=== PATIENT | female | born 2000 | race Caucasian/White ===

== ENCOUNTER 2023-01-04 21:09 | Emergency (ER) | payer OTHER ==
[~2023-01-04] VITALS: Ht 160 cm; Wt 63.8 kg
[~2023-01-04 21:09] MED LIST: IBUP-1022 PO; METH-1164 PO
[2023-01-05] MEDS ORDERED: IBUPROFEN 600MG TAB PO ONE (01:55)
[2023-01-05 02:10] VITALS: BP 114/74; TEMP 98; O2SAT 99
== END 2023-01-05 02:11 | disposition home or self-care (01) ==
LOC: M ED 21:09
DX: S00.83XA Contusion of other part of head, initial encounter (principal); S60.221A Contusion of right hand, initial encounter; S60.222A Contusion of left hand, initial encounter; V49.40XA Driver injured in collision with unspecified motor vehicles in traffic accident, initial encounter; Y92.9 Unspecified place or not applicable; Y93.89 Activity, other specified

== ENCOUNTER 2023-02-26 21:24 | Emergency (ER) | payer OTHER ==
[~2023-02-26] VITALS: Ht 152.4 cm; Wt 61.8 kg
[2023-02-26 22:15] LABS: BASO % 0.4 % (0.0-1.0); EOS % 0.2 % (0.0-3.0); HEMATOCRIT 39.6 % (36.0-47.0); HEMOGLOBIN 14.2 g/dl (12.0-15.5); LYMPH # 1.5 10^3/uL (1.5-5.0); LYMPH % 17.9 % (24.0-44.0); MEAN CORPUSCULAR HEMOGLOBIN 31.8 pg (27.0-33.0); MEAN CORPUSCULAR HGB CONC 35.9 g/dl (32.0-36.5); MEAN CORPUSCULAR VOLUME 88.8 fl (80.0-96.0); MONO # 0.5 10^3/uL (0.0-0.8); MONO % 5.8 % (2.0-8.0); NEUTROPHILS # 6.3 10^3/uL (1.5-8.5); NEUTROPHILS % 75.5 % (36.0-66.0); PLATELET COUNT, AUTOMATED 255 10^3/uL (150-450); RED BLOOD COUNT 4.46 10^6/uL (4.00-5.40); WHITE BLOOD COUNT 8.3 10^3/uL (4.0-10.0)
[2023-02-26 22:35] LABS: LIPASE 31 U/L (12-53)
[2023-02-26 22:37] LABS: ALBUMIN 4.5 G/DL (3.2-5.2); ALKALINE PHOSPHATASE 47 U/L (46-116); ALT/SGPT 26 U/L (7.0-40); AST/SGOT 15 U/L (<34); BILIRUBIN,DIRECT 0.2 MG/DL (<0.4); BILIRUBIN,TOTAL 0.5 MG/DL (0.3-1.2); BLOOD UREA NITROGEN 17 MG/DL (9-23); CALCIUM LEVEL 8.7 MG/DL (8.5-10.1); CARBON DIOXIDE LEVEL 23 MMOL/L (20-31); CHLORIDE LEVEL 106 MMOL/L (98-107); CREATININE FOR GFR 0.88 MG/DL (0.55-1.30); GLOMERULAR FILTRATION RATE > 60.0 (>60); GLUCOSE, FASTING 119 MG/DL (60-100); HCG, SERUM QUALITATIVE NEGATIVE (NEGATIVE); POTASSIUM SERUM 3.4 MMOL/L (3.5-5.1); SODIUM LEVEL 139 MMOL/L (136-145); TOTAL PROTEIN 7.5 G/DL (5.7-8.2)
[2023-02-26] MEDS ORDERED: KETOROLAC 30 MG/ML 1ML VIAL IV ONE (22:45)
[2023-02-26] MEDS ORDERED: ONDANSETRON 4MG 2ML VIAL IV ONE (22:45)
[2023-02-26] MEDS ORDERED: ISOVUE-370 76% 100ML VIAL As Ordered ONE (22:47)
[2023-02-26] MEDS ORDERED: FAMOTIDINE 20MG/2ML VIAL IVP ONE (22:50)
[2023-02-26] MEDS ORDERED: MORPHINE 4 MG/ML 1ML VIAL IV ONE (23:35)
[2023-02-27 00:11] VITALS: BP 173/90; TEMP 98.2
[2023-02-27 00:30] VITALS: O2SAT 99
[2023-02-27 01:39] LABS: CHLAMYDIA DNA AMPLIFICATION NEGATIVE (NEGATIVE); GC DNA AMPLIFICATION NEGATIVE (NEGATIVE)
[2023-02-27] MEDS ORDERED: ONDA4TAB6 PO (01:51)
== END 2023-02-27 02:00 | disposition home or self-care (01) ==
LOC: M ED 21:24 → EDBD 21:24 → M ED 02-27 02:00
DX: R11.2 Nausea with vomiting, unspecified (principal); F17.290 Nicotine dependence, other tobacco product, uncomplicated
CPT/HCPCS: 36415; 74177; 80048; 80076; 81001; 83690; 84703; 85025; 87486; 87581; 87633; 87661; 87798; 87810; 87850; 93005; 96374; 96375; 99284; J1885; J2405; Q9967; S0028

== ENCOUNTER 2023-02-27 07:00 | Emergency (ER) | payer OTHER ==
[~2023-02-27] VITALS: Ht 152.4 cm; Wt 62.4 kg
[2023-02-27 07:00] VITALS: BP 137/74; TEMP 97.2; O2SAT 100
[~2023-02-27 07:00] MED LIST changes: +ONDA4TAB6 PO
[2023-02-27] MEDS ORDERED: NS 1,000 ML IV ONE (09:30)
[2023-02-27] MEDS ORDERED: KETOROLAC 30 MG/ML 1ML VIAL IV ONE (09:30)
[2023-02-27] MEDS ORDERED: ONDANSETRON 4MG 2ML VIAL IV ONE (09:30)
[2023-02-27] MEDS ORDERED: HALOPERIDOL 5MG/ML 1ML VIAL IV ONE (10:35)
== END 2023-02-27 12:04 | disposition home or self-care (01) ==
LOC: M ED 07:00
DX: R11.2 Nausea with vomiting, unspecified (principal); N83.209 Unspecified ovarian cyst, unspecified side; Z91.018 Allergy to other foods; Z79.83 Long term (current) use of bisphosphonates; F17.210 Nicotine dependence, cigarettes, uncomplicated; F10.10 Alcohol abuse, uncomplicated; F19.10 Other psychoactive substance abuse, uncomplicated
CPT/HCPCS: 80047; 96361; 96374; 96375; 99283; J1630; J1885; J2405

== ENCOUNTER 2023-03-01 08:47 | Emergency (ER) | payer OTHER ==
[~2023-03-01] VITALS: Ht 152.4 cm; Wt 69.8 kg
[2023-03-01] MEDS ORDERED: ONDANSETRON 4MG 2ML VIAL IV ONE (11:10)
[2023-03-01] MEDS ORDERED: NS 1,000 ML IV ONE (11:10)
[2023-03-01 11:47] LABS: HEMATOCRIT 38.7 % (36.0-47.0); HEMOGLOBIN 14.2 g/dl (12.0-15.5); MEAN CORPUSCULAR HEMOGLOBIN 32.6 pg (27.0-33.0); PLATELET COUNT, AUTOMATED 245 10^3/uL (150-450); RED BLOOD COUNT 4.35 10^6/uL (4.00-5.40); WHITE BLOOD COUNT 5.2 10^3/uL (4.0-10.0)
[2023-03-01 11:51] LABS: MEAN CORPUSCULAR HGB CONC 36.7 g/dl (32.0-36.5)
[2023-03-01 12:29] LABS: ALBUMIN 4.5 G/DL (3.2-5.2); ALKALINE PHOSPHATASE 42 U/L (46-116); ALT/SGPT 29 U/L (7.0-40); AST/SGOT 38 U/L (<34); BILIRUBIN,DIRECT 0.1 MG/DL (<0.4); BILIRUBIN,TOTAL 0.5 MG/DL (0.3-1.2); HCG, SERUM QUANTITATIVE < 2.6 MIU/ML (<4.2); LIPASE 41 U/L (12-53); TOTAL PROTEIN 7.7 G/DL (5.7-8.2)
[2023-03-01] MEDS ORDERED: ONDA4TAB6 PO (14:35)
[2023-03-01 14:49] VITALS: BP 134/88; TEMP 99; O2SAT 97
== END 2023-03-01 15:06 | disposition home or self-care (01) ==
LOC: M ED 08:47
DX: R11.2 Nausea with vomiting, unspecified (principal); F17.290 Nicotine dependence, other tobacco product, uncomplicated; Z79.899 Other long term (current) drug therapy; Z88.8 Allergy status to other drugs, medicaments and biological substances
CPT/HCPCS: 71046; 80047; 80076; 81001; 83690; 84702; 85027; 87486; 87581; 87633; 87798; 96361; 96374; 99284; J2405

== ENCOUNTER 2023-03-04 18:21 | Emergency (ER) | payer OTHER ==
[~2023-03-04] VITALS: Ht 152.4 cm; Wt 61.3 kg
[2023-03-04 19:47] LABS: BASO % 0.2 % (0.0-1.0); EOS % 0.2 % (0.0-3.0); HEMATOCRIT 40.4 % (36.0-47.0); HEMOGLOBIN 14.3 g/dl (12.0-15.5); LYMPH # 1.2 10^3/uL (1.5-5.0); LYMPH % 15.3 % (24.0-44.0); MEAN CORPUSCULAR HEMOGLOBIN 32.1 pg (27.0-33.0); MEAN CORPUSCULAR HGB CONC 35.4 g/dl (32.0-36.5); MEAN CORPUSCULAR VOLUME 90.6 fl (80.0-96.0); MONO # 0.4 10^3/uL (0.0-0.8); MONO % 4.7 % (2.0-8.0); NEUTROPHILS # 6.4 10^3/uL (1.5-8.5); NEUTROPHILS % 79.4 % (36.0-66.0); PLATELET COUNT, AUTOMATED 224 10^3/uL (150-450); RED BLOOD COUNT 4.46 10^6/uL (4.00-5.40)
[2023-03-04 20:06] LABS: CK-MB VALUE MASS < 1.0 NG/ML (<3.6)
[2023-03-04] MEDS ORDERED: KETOROLAC 30 MG/ML 1ML VIAL IV ONE (20:10)
[2023-03-04] MEDS ORDERED: NS 1,000 ML IV ONE (20:10)
[2023-03-04 20:11] LABS: CPK CREATINE PHOSPHOKINASE 83 U/L (34-145)
[2023-03-04 20:42] LABS: INR 1.03; PROTHROMBIN TIME 13.2 SECONDS (12.5-14.5)
[2023-03-04 20:44] LABS: D-DIMER QUANT < 0.27 ug/mL (<0.5)
[2023-03-04] MEDS ORDERED: ALBUTEROL SULFATE 2.5MG/0.5ML INH NEB SOLN NEB ONE (21:15)
[2023-03-04 22:10] LABS: RSV AMPLIFICATION NEGATIVE (NEGATIVE)
[2023-03-04 22:23] VITALS: TEMP 97.9
[2023-03-04 22:30] VITALS: BP 132/72
[2023-03-04 22:36] VITALS: O2SAT 96
[2023-03-04] MEDS ORDERED: ALBU8.5H INH (22:42)
[2023-03-04] MEDS ORDERED: HYDR-3363 PO (22:42)
== END 2023-03-04 22:59 | disposition home or self-care (01) ==
LOC: M ED 18:21
DX: F41.9 Anxiety disorder, unspecified (principal); R07.9 Chest pain, unspecified; R94.31 Abnormal electrocardiogram [ECG] [EKG]; F12.90 Cannabis use, unspecified, uncomplicated; F17.290 Nicotine dependence, other tobacco product, uncomplicated; Z91.018 Allergy to other foods; Z88.8 Allergy status to other drugs, medicaments and biological substances; Z79.899 Other long term (current) drug therapy; Z79.51 Long term (current) use of inhaled steroids
CPT/HCPCS: 71046; 80047; 81001; 82550; 82553; 83735; 84443; 84702; 85025; 85379; 85610; 87631; 93005; 94640; 96374; 99285; J1885

== ENCOUNTER 2023-09-29 21:58 | Emergency (ER) | payer OTHER ==
[~2023-09-29] VITALS: Ht 152.4 cm; Wt 60.8 kg
[~2023-09-29 21:58] MED LIST changes: +ALBU8.5H INH; +HYDR-3363 PO; +ONDA-282 PO; -ONDA4TAB6 PO
[2023-09-29 21:59] VITALS: BP 128/84; TEMP 97.9; O2SAT 99
[2023-09-29 22:46] LABS: BASO % 0.4 % (0.0-1.0); EOS # 0.1 10^3/uL (0.0-0.5); EOS % 1.2 % (0.0-3.0); HEMATOCRIT 42.3 % (36.0-47.0); LYMPH # 1.8 10^3/uL (1.5-5.0); LYMPH % 26.6 % (24.0-44.0); MEAN CORPUSCULAR HEMOGLOBIN 32.1 pg (27.0-33.0); MEAN CORPUSCULAR HGB CONC 35.5 g/dl (32.0-36.5); MEAN CORPUSCULAR VOLUME 90.4 fl (80.0-96.0); MONO # 0.5 10^3/uL (0.0-0.8); MONO % 6.6 % (2.0-8.0); NEUTROPHILS # 4.5 10^3/uL (1.5-8.5); NEUTROPHILS % 65.1 % (36.0-66.0); PLATELET COUNT, AUTOMATED 262 10^3/uL (150-450); RED BLOOD COUNT 4.68 10^6/uL (4.00-5.40); WHITE BLOOD COUNT 6.9 10^3/uL (4.0-10.0)
[2023-09-29 23:19] LABS: LIPASE 40 U/L (12-53)
[2023-09-29 23:21] LABS: ALBUMIN 4.5 G/DL (3.2-5.2); ALKALINE PHOSPHATASE 54 U/L (46-116); ALT/SGPT 28 U/L (7.0-40); AST/SGOT 16 U/L (<34); BILIRUBIN,DIRECT < 0.1 MG/DL (<0.4); BILIRUBIN,TOTAL 0.3 MG/DL (0.3-1.2); BLOOD UREA NITROGEN 10 MG/DL (9-23); CALCIUM LEVEL 9.1 MG/DL (8.5-10.1); CARBON DIOXIDE LEVEL 30 MMOL/L (20-31); CHLORIDE LEVEL 104 MMOL/L (98-107); CREATININE FOR GFR 0.77 MG/DL (0.55-1.30); GLOMERULAR FILTRATION RATE > 60.0 (>60); GLUCOSE, FASTING 111 MG/DL (60-100); POTASSIUM SERUM 4.1 MMOL/L (3.5-5.1); SODIUM LEVEL 139 MMOL/L (136-145); TOTAL PROTEIN 7.8 G/DL (5.7-8.2)
[2023-09-29 23:33] LABS: HCG, SERUM QUALITATIVE NEGATIVE (NEGATIVE)
== END 2023-09-30 02:05 | disposition left against medical advice (07) ==
LOC: M ED 21:58
DX: Z53.21 Procedure and treatment not carried out due to patient leaving prior to being seen by health care provider (principal)